=== PATIENT | male | born 1990 | race Caucasian/White ===

== ENCOUNTER 2016-06-07 02:34 | Emergency (ER) ==
[2016-06-07 02:49] VITALS: BP 157/99; TEMP 98.8; BMI 28.1
[2016-06-07] MEDS ORDERED: ATIVAN PO STA (03:03)
[2016-06-07] MEDS ORDERED: TORADOL IM STA (03:03)
--- NOTE | 2016-06-07 03:05 | ED.PDOC ---
General ED Provider: Dr. AGNES HART Chief Complaint: Chest Pain Stated Complaint: patient complains of difficulty breathing for 1 week worse today. Also compalint of tenderness to the chest when he touches. States he has been going throught alot of stress. Time Seen by Physician: 03:01 Mode of Arrival: Walk-In Information Source: Patient Nursing and Triage Documentation Reviewed and Agree: Yes Review of Systems - Review Of Systems Constitutional: Reports: No symptoms Eyes: Reports: No symptoms Ears, Nose, Mouth, Throat: Reports: No symptoms Respiratory: Reports: No symptoms Cardiac: Reports: No symptoms GI: Reports: No symptoms : Reports: No symptoms Musculoskeletal: Reports: No symptoms Skin: Reports: No symptoms Neurological: Reports: Anxiety, Depressed, Emotional problems Endocrine: Reports: No symptoms Hematologic/Lymphatic: Reports: No symptoms All Other Systems: Reviewed and Negative Past Medical History - Past Medical History Previously Healthy: Yes Endocrine: Reports: None Cardiovascular: Reports: None Respiratory: Reports: Asthma Hematological: Reports: None Gastrointestinal: Reports: None Genitourinary: Reports: None Neuro/Psych: Reports: Anxiety, Depression Musculoskeletal: Reports: None Cancer: Reports: None - Surgical History General Surgical History: Reports: None - Family History Family History: Reports: None - Social History Smoking Status: Current every day smoker, Light tobacco smoker Hx Substance Use: Yes (OCCASIONAL MARIJUANA USE) Alcohol Screening: None - Immunizations Tetanus Shot up to Date: Yes (2008) Physical Exam - Physical Exam Appearance: Ill-appearing Ill-appearing: Moderate Neck: Supple Respiratory: Airway patent, Breath sounds clear, Breath sounds equal, Respirations nonlabored Cardiovascular: RRR, Pulses normal, No rub, No murmur GI/: Soft, Nontender, No masses, Bowel sounds normal, No Organomegaly Musculoskeletal: Normal strength, ROM intact, No edema, No calf tenderness Skin: Warm Neurological: Sensation intact Psychiatric: Anxious, Depressed Critical Care Note - Critical Care Note Total Time (mins): 0 Course - Course Orders, Labs, Meds: Lab Review 06/07/16 06/07/16 03:02 03:05 Urine Color Yellow Urine Clarity Clear Urine pH 6.0 Ur Specific [place] 1.025 Urine Protein Negative Urine Glucose (UA) Negative Urine Ketones Negative Urine Blood Negative Urine Nitrite Negative Urine Bilirubin Negative Urine Urobilinogen 0.2 Ur Leukocyte Esterase Negative Urine Opiates Screen Negative Ur Oxycodone Screen Negative Urine Methadone Screen Negative Ur Propoxyphene Screen Negative Ur Barbiturates Screen Negative U Tricyclic Antidepress Negative Ur Phencyclidine Scrn Negative Ur Amphetamine Screen Negative U Methamphetamines Scrn Negative U Benzodiazepines Scrn Negative Urine Cocaine Screen Negative U Cannabinoids Screen Positive Orders Category Date Time Status DRUG SCREEN, URINE, RAPID Stat LAB 06/07/16 03:02 Completed URINALYSIS C & S IF INDICATED Stat LAB 06/07/16 03:05 Completed Ketorolac Tromethamine [Toradol] MEDS 06/07/16 03:03 Discontinued 60 mg IM ONCE STA Lorazepam [Ativan] MEDS 06/07/16 03:03 Discontinued 0.5 mg PO ONCE STA Medications Discontinued Medications Generic Name Dose Route Start Last Admin Trade Name Freq PRN Reason Stop Dose Admin Ketorolac Tromethamine 60 mg 06/07/16 03:03 06/07/16 03:12 Toradol IM 06/07/16 03:04 60 mg ONCE STA Administration Lorazepam 0.5 mg 06/07/16 03:03 06/07/16 03:13 Ativan PO 06/07/16 03:04 0.5 mg ONCE STA Administration Vital Signs: Temp Pulse Resp BP Pulse Ox 06/07/16 02:38 98.8 F 100 H 28 H 157/99 H 100 Departure - Departure Time of Disposition: 03:59 Disposition: HOME SELF-CARE Discharge Problem: Anxiety attack Instructions: Anxiety (ED), Chest Wall Pain (ED) Condition: Good Pt referred to PMD for follow-up: Yes Additional Instructions: Take Ibuprofen as needed for chest wll pain Take anxiety medications as needed for anxiety. Prescriptions: Amoxicillin [Amoxil] 500 mg PO TID #30 capsule Ibuprofen [Motrin] 600 mg PO Q6H PRN #30 tablet PRN Reason: Analgesia Lorazepam [Ativan] 0.5 mg PO TID #14 tablet Allergies/Adverse Reactions: Allergies codeine Adverse Reaction (Verified 06/07/16 02:49) SWELLING, BREAK OUT, RASH Home Medications: Ambulatory Orders Ibuprofen [Motrin] 600 mg PO Q6H PRN #30 tablet 02/06/16 Amoxicillin [Amoxil] 500 mg PO TID #30 capsule 06/07/16 Ibuprofen [Motrin] 600 mg PO Q6H PRN #30 tablet 06/07/16 Lorazepam [Ativan] 0.5 mg PO TID #14 tablet 06/07/16
[2016-06-07 03:10] LABS: ADD URINE MICROSCOPIC NO; BILIRUBIN,URINE Negative (NEGATIVE); KETONES,URINE Negative (NEGATIVE); LEUKOCYTE ESTERASE ,URINE Negative (NEGATIVE); NITRITE,URINE Negative (NEGATIVE); PROTEIN,URINE Negative (NEGATIVE); URINE, BLOOD Negative (NEGATIVE)
[2016-06-07 03:26] LABS: COCAIN SCREEN,URINE NEGATIVE (NEGATIVE)
== END 2016-06-07 04:21 | disposition home or self-care (01) ==
LOC: ED 02:34
DX: F41.0 Panic disorder [episodic paroxysmal anxiety] (principal); F17.210 Nicotine dependence, cigarettes, uncomplicated
CPT/HCPCS: 80306; 81001; 96372; 99282

== ENCOUNTER 2016-06-11 09:01 | Emergency (ER) ==
[2016-06-11 09:02] VITALS: BMI 28.1
[2016-06-11 09:07] VITALS: BP 137/87; TEMP 98.2
--- NOTE | 2016-06-11 09:20 | ED.PDOC ---
General ED Provider: Dr. MENDEL FERNANDO Chief Complaint: Chest Pain Stated Complaint: Chest pain off and on 2 weeks. Worse today. Seen in ER Thursday night. Time Seen by Physician: 09:15 Mode of Arrival: Walk-In Information Source: Patient, Family Exam Limitations: No limitations Nursing and Triage Documentation Reviewed and Agree: Yes Review of Systems - Review Of Systems Constitutional: Reports: No symptoms Cardiac: Reports: Chest pain GI: Reports: No symptoms : Reports: No symptoms Musculoskeletal: Reports: No symptoms Skin: Reports: No symptoms Neurological: Reports: Anxiety (Relates personal problems to RN and admist to MD many stresses in his life; ativan not helping) All Other Systems: Reviewed and Negative Past Medical History - Past Medical History Previously Healthy: Yes Endocrine: Reports: None Cardiovascular: Reports: None Respiratory: Reports: Asthma Hematological: Reports: None Gastrointestinal: Reports: None Genitourinary: Reports: None Neuro/Psych: Reports: Anxiety, Depression Musculoskeletal: Reports: None Cancer: Reports: None - Surgical History General Surgical History: Reports: None - Family History Family History: Reports: None - Social History Smoking Status: Current every day smoker, Light tobacco smoker Hx Substance Use: Yes (OCCASIONAL MARIJUANA USE) Alcohol Screening: None - Immunizations Tetanus Shot up to Date: Yes Physical Exam - Physical Exam Appearance: Well-appearing Pain Distress: Moderate (Indicates L chest; pectoral region - "burning from inside") Respiratory: Airway patent, Breath sounds clear, Breath sounds equal, Respirations nonlabored Cardiovascular: RRR, Pulses normal, No rub, No murmur GI/: Soft, Nontender, No masses Musculoskeletal: Normal strength, ROM intact, No edema Skin: Warm, Dry, Normal color Neurological: Sensation intact, Motor intact, Alert, Oriented Psychiatric: Affect appropriate, Mood appropriate Interpretation - Radiology Interpretation Radiology Interpretation By: Radiologist Radiology Results: Negative Exam Interpreted: CXR - EKG Interpretation Time of EKG #1: 09:30 Rate: Normal Rhythm: Sinus Ectopy: None [place]: NL ST Segment: Normal Interpretation: NSR Re-Evaluation - Re-Evaluation Time of Re-Evaluation: 11:15 Status: Unchanged Vital Signs Stable: Yes Appearance: Other (Very anxious; discussed at length with pt) Lungs: Clear Skin: Warm and Dry Neuro: Alert and Oriented X3 CV: RRR Critical Care Note - Critical Care Note Total Time (mins): 20 Course - Course Hematology/Chemistry: 06/11/16 09:30 06/11/16 09:30 Orders, Labs, Meds: Lab Review 06/11/16 09:30 WBC 8.46 RBC 4.96 Hgb 16.0 Hct 45.0 MCV 90.7 MCH 32.3 H MCHC 35.6 H RDW Coeff of Mell 11.9 Plt Count 199 Immature Gran % (Auto) 0.5 Neut % (Auto) 52.7 Lymph % (Auto) 33.7 [place] % (Auto) 9.1 Eos % (Auto) 3.5 Baso % (Auto) 0.5 Immature Gran # (Auto) 0.0 Neut # 4.5 Lymph # 2.9 [place] # 0.8 Eos # 0.3 Baso # 0.0 D-Dimer < 0.19 L Sodium 142 Potassium 4.3 Chloride 107 Carbon Dioxide 26 Anion Gap 13.3 BUN 8 Creatinine 0.83 Estimated GFR (MDRD) 111.00 BUN/Creatinine Ratio 9.63 Glucose 85 Calcium 9.3 Total Bilirubin 0.28 AST 25 ALT 58 Alkaline Phosphatase 62 Troponin I < 0.0100 Total Protein 7.0 Albumin 3.8 Globulin 3.2 Albumin/Globulin Ratio 1.19 Orders Category Date Time Status EKG-(IP & OP ONLY) Stat CARDIO 06/11/16 09:24 Completed CBC W/ AUTO DIFF Stat LAB 06/11/16 09:30 Completed COMPREHENSIVE METABOLIC PANEL Stat LAB 06/11/16 09:30 Completed D-DIMER Stat LAB 06/11/16 09:30 Completed TROPONIN I Stat LAB 06/11/16 09:30 Completed CHEST, 2 VIEWS PA & LAT Stat RADS 06/11/16 09:21 Completed Vital Signs: Temp Pulse Resp BP Pulse Ox 06/11/16 09:02 98.2 F 89 20 137/87 97 LEANNE Risk Score LEANNE Risk Score: Risk Score Odds of by 30D 0 0.1 (0.1-0.2) 1 0.3 (0.2-0.3) 2 0.4 (0.3-0.5) 3 0.7 (0.6-0.9) 4 1.2 (1.0-1.5) 5 2.2 (1.9-2.6) 6 3.0 (2.5-3.6) 7 4.8 (3.8-6.1) Departure - Departure Time of Disposition: 11:25 Disposition: HOME SELF-CARE Discharge Problem: Chest pain Instructions: Chest Pain (ED) Condition: Good Pt referred to PMD for follow-up: Yes (Call for appointment) Additional Instructions: Follow up with primary care - [facility] is an option. Take Xanax as prescribed. Prescriptions: Alprazolam [Xanax] 1 mg PO 1-2XD #14 tablet Allergies/Adverse Reactions: Allergies codeine Adverse Reaction (Verified 06/11/16 09:10) SWELLING, BREAK OUT, RASH Home Medications: Ambulatory Orders Ibuprofen [Motrin] 600 mg PO Q6H PRN #30 tablet 02/06/16 Amoxicillin [Amoxil] 500 mg PO TID #30 capsule 06/07/16 Ibuprofen [Motrin] 600 mg PO Q6H PRN #30 tablet 06/07/16 Lorazepam [Ativan] 0.5 mg PO TID #14 tablet 06/07/16 Alprazolam [Xanax] 1 mg PO 1-2XD #14 tablet 06/11/16 Disposition Discussed With: Patient, Family (Dad present with patient throughout ER visit)
[2016-06-11 09:42] LABS: BASOPHILS % (AUTO) 0.5 % (0.0-3.0); EOSINOPHILS # (AUTO) 0.3 K/ul (0.0-0.7); EOSINOPHILS % (AUTO) 3.5 % (0.0-7.0); IMMATURE GRANULOCYTE % (AUTO) 0.5 % (0.0-5.0); LYMPHOCYTES # (AUTO) 2.9 K/uL (0.60-3.4); LYMPHOCYTES % (AUTO) 33.7 (10.0-50.0); MEAN CORPUSCULAR HEMOGLOBIN 32.3 pg (27.0-31.0); MEAN CORPUSCULAR HGB CONC 35.6 (31.8-35.4); MEAN CORPUSCULAR VOLUME 90.7 fl (80.0-94.0); MONOCYTES # (AUTO) 0.8 K/uL (0.4-2.0); MONOCYTES % (AUTO) 9.1 (0-10); NEUTROPHILS # (AUTO) 4.5 K/ul (2.0-6.9); NEUTROPHILS % (AUTO) 52.7; PLATELET COUNT 199 10^3/uL (140-440); RED BLOOD COUNT 4.96 10^6/ul (4.70-6.10); WHITE BLOOD COUNT 8.46 K/ul (4.2-10.2)
--- NOTE | 2016-06-11 10:03 | DI ---
EXAM: Two views of the chest. History: Chest pain. Comparison: Chest radiograph 02/06/2016 Findings: Heart size is normal. No focal consolidation. No appreciable pleural fluid and no pneum othorax. No acute osseous abnormalities. Impression: No acute cardiopulmonary process.
[2016-06-11 10:09] LABS: ALANINE AMINOTRANSFERASE 58 U/L (12-78); ALBUMIN 3.8 g/dL (3.4-5.0); ALBUMIN/GLOBULIN RATIO 1.19; ALKALINE PHOSPHATASE 62 U/L (50-136); ANION GAP 13.3; ASPARTATE AMINO TRANSFERASE 25 U/L (15-37); BILIRUBIN,TOTAL 0.28 mg/dL (0.00-1.20); BLOOD UREA NITROGEN 8 mg/dL (7-18); BUN/CREATININE RATIO 9.63; CALCIUM 9.3 mg/dL (8.2-10.2); CARBON DIOXIDE 26 mmol/L (21-32); CHLORIDE 107 mmol/L (98-107); CREATININE 0.83 mg/dL (0.60-1.10); GLUCOSE 85 mg/dL (70-100); POTASSIUM 4.3 mmol/L (3.5-5.1); SODIUM 142 mmol/L (136-145)
== END 2016-06-11 11:39 | disposition home or self-care (01) ==
LOC: ED 09:01
DX: R07.9 Chest pain, unspecified (principal); F17.210 Nicotine dependence, cigarettes, uncomplicated
CPT/HCPCS: 36415; 80053; 84484; 85025; 85379; 93005; 93010; 99283

== ENCOUNTER 2016-07-02 09:05 | Emergency (ER) ==
[2016-07-02 09:05] VITALS: BMI 28.1
[2016-07-02 09:13] VITALS: BP 159/95; TEMP 96.1
[2016-07-02] MEDS ORDERED: DUONEB NEB STA (09:19)
--- NOTE | 2016-07-02 09:23 | ED.PDOC ---
General ED Provider: Dr. TRINA PINTO JR Chief Complaint: Chest Pain Stated Complaint: HAS BEEN HAVING PROBLEMS WITH LAFT SIDED CHEST PAIN RADIATING UNDER LEFT BREAST FOR A MONTH AND A HALF. WAS SEEN APROX 2-3 WEEKS AGO AND TOLD IT WAS ANXIETY. STATES IT IS NOW GETTING WORSE AND UNABLE TO SLEEP. STATES IT FEELS LIKE SOMEBODY HAS HIT HI, IN THE CHEST. ALSO GETS SHORT OF BREATH WITH IT. LAST MARIJUANA WAS 2 DAYS AGO PT STATES HAS BEEN COUGHING, LEFT SIDE IS TENDER TO TOUCH AND UNABLE TO LAY ON THAT SIDE stabbing left chest pain[ End ]96.1 94 18 97% 159/95 8/10 patient is unhappy with past diagnosis of anxiety, states about to fall over at work, pain interferes with intercourse; location left upper chest above areola also is grabbingleft chest below areola at ant ax line. asth anx adhd testicle. : 06/11/16 FERNANDO: Chest pain off and on 2 weeks. Worse today. Seen in ER Thursday night: Anxiety (Relates personal problems to RN and admit to MD many stresses in his life; ativan not helping): Asthma: Anxiety, Depression(OCCASIONAL MARIJUANA USE) (Very anxious; discussed at length with pt): Chest Pain (ED). Pt referred to PMD for follow- up: Yes (Call for appointment)Follow up with primary care - [facility] is an option. Take Xanax as prescribed. [Xanax] 1 mg PO #14 tabletcodeine AdverseSWELLING, BREAK OUT, RASH[Motrin]02/06/16 [Amoxil] 06/07/16 [Motrin] 07/21 [Ativan]06/07/16 [Xanax]06/11/16. Disposition Discussed With: Patient, Family (Dad present with patient throughout ER visit). : 06/07/16: Chest Pain; difficulty breathing for 1 week worse today. tenderness to the chest.going throught alot of stress.: Anxiety, Depressed, Emotional problems: Asthma: Depressed Anxiety attack:Anxiety (ED), Chest Wall Pain (ED) Ibuprofen for chest wll pain anxiety medications as needed [id number] mg Motrin 600 mg Ativan 0.5 mg. : 02/06/16 :tightness to left chest 4-5 days, heart is racing. pain from mid left chest to left axilla does not radiate. Denies injury or lifting: Anxious Methylprednisolone 125 mg 02/07/16 Pleuritic chest pain: Thoracic Pain (ED), Anxiety (ED) referred to PMD for follow-up: Yes Follow up with PCP in 3 days. : 03/29/15: Earache:left ear pain, 2 days, today worse: Otitis Media Augmentin 500-125 mg Tab] Dexamethasone 4 mg/ml Inj Toradol 60 mg IM :Otitis Media. : 11/20/14: Dyspnea at rest, Dyspnea on exertion, Orthopnea Prolonged Expiratory Phase:Unable to Speak Full Sentences:Negative:CXR admitted. : : my sinuses are plugged johana am coughing Time Seen by Physician: 09:15 Mode of Arrival: Walk-In Information Source: Patient Exam Limitations: No limitations Nursing and Triage Documentation Reviewed and Agree: No Review of Systems - Review Of Systems Constitutional: Reports: No symptoms Eyes: Reports: No symptoms Ears, Nose, Mouth, Throat: Reports: No symptoms Respiratory: Reports: Short of air Cardiac: Reports: Chest pain GI: Reports: No symptoms : Reports: No symptoms Musculoskeletal: Reports: Muscle pain Skin: Reports: No symptoms Neurological: Reports: Anxiety Endocrine: Reports: No symptoms Hematologic/Lymphatic: Reports: No symptoms All Other Systems: Other Past Medical History - Past Medical History Previously Healthy: Yes Endocrine: Reports: None Cardiovascular: Reports: None Respiratory: Reports: Asthma Hematological: Reports: None Gastrointestinal: Reports: None Genitourinary: Reports: None Neuro/Psych: Reports: Anxiety, Depression Musculoskeletal: Reports: None Cancer: Reports: None - Surgical History General Surgical History: Reports: None - Family History Family History: Reports: None - Social History Smoking Status: Current every day smoker, Light tobacco smoker Hx Substance Use: Yes (OCCASIONAL MARIJUANA USE) Alcohol Screening: None Physical Exam - Physical Exam Appearance: Well-appearing Pain Distress: Moderate Eyes: GINNY, EOMI, Conjunctiva clear ENT: Ears normal, Nose normal, Oropharynx normal Neck: Supple Respiratory: Airway patent, Breath sounds clear, Breath sounds equal, Respirations nonlabored, Crackles (feww intferior) Cardiovascular: RRR, Pulses normal, No rub, No murmur GI/: Soft, Nontender, No masses, Bowel sounds normal, No Organomegaly Musculoskeletal: Normal strength, ROM intact, No edema, No calf tenderness ( left chest wall tenderness as noted) Skin: Warm, Dry, Normal color Neurological: Sensation intact, Motor intact, Reflexes intact, Cranial nerves intact, Alert, Oriented Psychiatric: Affect appropriate, Mood appropriate, Anxious Interpretation - Radiology Interpretation Radiology Interpretation By: Radiologist Radiology Results: Negative Exam Interpreted: CXR - EKG Interpretation Time of EKG #1: 09:30 Rate: Normal Rhythm: Sinus Ectopy: None [place]: NL ST Segment: Normal Critical Care Note - Critical Care Note Total Time (mins): 0 Course - Course Hematology/Chemistry: 07/02/16 09:45 07/02/16 09:45 Orders, Labs, Meds: Lab Review 07/02/16 07/02/16 07/02/16 09:19 09:45 10:40 WBC 8.73 RBC 4.81 Hgb 15.6 Hct 43.1 MCV 89.6 MCH 32.4 H MCHC 36.2 H RDW Coeff of Mell 11.7 Plt Count 205 Immature Gran % (Auto) 0.5 Neut % (Auto) 55.7 Lymph % (Auto) 31.8 [place] % (Auto) 8.1 Eos % (Auto) 3.6 Baso % (Auto) 0.3 Immature Gran # (Auto) 0.0 Neut # 4.9 Lymph # 2.8 [place] # 0.7 Eos # 0.3 Baso # 0.0 Puncture Site Rr O2 Saturation 96.0 ABG pH 7.389 ABG pCO2 37.9 ABG pO2 85.0 ABG HCO3 22.9 ABG Total CO2 24 ABG Base Excess -2 [place] Test + FiO2 % 21.0 Sodium 140 Potassium 3.9 Chloride 108 H Carbon Dioxide 23 Anion Gap 12.9 BUN 12 Creatinine 0.82 Estimated GFR (MDRD) 113.00 BUN/Creatinine Ratio 14.63 Glucose 100 Calcium 9.4 Total Bilirubin 0.19 AST 32 ALT 80 H Alkaline Phosphatase 67 Total Creatine Kinase 45 Troponin I < 0.0100 B-Natriuretic Peptide < 10 Total Protein 7.1 Albumin 4.0 Globulin 3.1 Albumin/Globulin Ratio 1.29 TSH 1.089 Urine Color Yellow Urine Clarity Clear Urine pH 5.5 Ur Specific [place] 1.020 Urine Protein Negative Urine Glucose (UA) Negative Urine Ketones Negative Urine Blood Negative Urine Nitrite Negative Urine Bilirubin Negative Urine Urobilinogen 0.2 Ur Leukocyte Esterase Negative Urine Opiates Screen Negative Ur Oxycodone Screen Negative Urine Methadone Screen Negative Ur Propoxyphene Screen Negative Ur Barbiturates Screen Negative U Tricyclic Antidepress Negative Ur Phencyclidine Scrn Negative Ur Amphetamine Screen Negative U Methamphetamines Scrn Negative U Benzodiazepines Scrn Negative Urine Cocaine Screen Negative U Cannabinoids Screen Positive Orders Category Date Time Status ABG DRAW REQUEST Stat CARDIO 07/02/16 09:20 Completed EKG-(ED ONLY) Stat CARDIO 07/02/16 09:20 Completed NEBULIZER TREATMENT Stat CARDIO 07/02/16 09:20 Completed PEAK FLOW Routine CARDIO 07/02/16 09:33 Completed ED USER EXPERIENCE MANAGER APPLIED .ONCE EMERGENCY 07/02/16 09:20 Active ABG Stat LAB 07/02/16 09:19 Completed B-TYPE NATRIURETIC PEPTIDE Stat LAB 07/02/16 09:45 Completed CBC W/ AUTO DIFF Stat LAB 07/02/16 09:45 Completed COMPREHENSIVE METABOLIC PANEL Stat LAB 07/02/16 09:45 Completed CREATINE KINASE Stat LAB 07/02/16 09:45 Completed DRUG SCREEN, URINE, RAPID Stat LAB 07/02/16 10:40 Completed THYROID STIMULATING HORMONE Stat LAB 07/02/16 09:45 Completed TROPONIN I Stat LAB 07/02/16 09:45 Completed URINALYSIS C & S IF INDICATED Stat LAB 07/02/16 10:40 Completed Ipratropium/Albuterol Neb [Duoneb] MEDS 07/02/16 09:19 Discontinued 1 vial NEB ONCE STA CHEST, 2 VIEWS PA & LAT Stat RADS 07/02/16 09:19 Completed Medications Discontinued Medications Generic Name Dose Route Start Last Admin Trade Name Freq PRN Reason Stop Dose Admin Albuterol/Ipratropium 1 vial 07/02/16 09:19 07/02/16 09:55 Duoneb NEB 07/02/16 09:20 1 vial ONCE STA Administration Vital Signs: Temp Pulse Resp BP Pulse Ox 07/02/16 09:05 96.1 F L 94 H 18 159/95 H 97 Departure - Departure Time of Disposition: 11:11 Disposition: HOME SELF-CARE Discharge Problem: Chest pain Instructions: Thoracic Pain (ED) Condition: Good Pt referred to PMD for follow-up: Yes Additional Instructions: may use pain medicine sparingly for pain opiates are addictive DO NOT take every day recommend over the counter Motrin two to four times a day to relieve pain and swelling daily exercise to get muscles moving follow up with PMD one week Prescriptions: Hydrocodone Bit/Acetaminophen [[place] 5-325] 1 - 2 tab PO Q6HR PRN #12 tablet PRN Reason: pain Ibuprofen [Motrin] 600 mg PO QID PRN #30 tablet PRN Reason: PAIN Allergies/Adverse Reactions: Allergies codeine Adverse Reaction (Verified 07/02/16 09:15) SWELLING, BREAK OUT, RASH Home Medications: Ambulatory Orders Hydrocodone Bit/Acetaminophen [[place] 5-325] 1 - 2 tab PO Q6HR PRN #12 tablet Ibuprofen [Motrin] 600 mg PO QID PRN #30 tablet 07/02/16 Disposition Discussed With: Patient
[2016-07-02 09:45] LABS: ABG BASE EXCESS -2 (-2.0-2.0); ABG HCO3 22.9 (22.0-26.0); ABG PCO2 37.9 mmHg (35-45); ABG PH 7.389 (7.35-7.45); ABG TCO2 24 (22.0-28.0)
[2016-07-02 09:54] LABS: BASOPHILS % (AUTO) 0.3 % (0.0-3.0); EOSINOPHILS # (AUTO) 0.3 K/ul (0.0-0.7); EOSINOPHILS % (AUTO) 3.6 % (0.0-7.0); HEMATOCRIT 43.1 % (42.0-52.0); HEMOGLOBIN 15.6 g/dl (14.0-18.0); IMMATURE GRANULOCYTE % (AUTO) 0.5 % (0.0-5.0); LYMPHOCYTES # (AUTO) 2.8 K/uL (0.60-3.4); LYMPHOCYTES % (AUTO) 31.8 (10.0-50.0); MEAN CORPUSCULAR HEMOGLOBIN 32.4 pg (27.0-31.0); MEAN CORPUSCULAR HGB CONC 36.2 (31.8-35.4); MEAN CORPUSCULAR VOLUME 89.6 fl (80.0-94.0); MONOCYTES # (AUTO) 0.7 K/uL (0.4-2.0); MONOCYTES % (AUTO) 8.1 (0-10); NEUTROPHILS # (AUTO) 4.9 K/ul (2.0-6.9); NEUTROPHILS % (AUTO) 55.7; PLATELET COUNT 205 10^3/uL (140-440); RED BLOOD COUNT 4.81 10^6/ul (4.70-6.10); WHITE BLOOD COUNT 8.73 K/ul (4.2-10.2)
--- NOTE | 2016-07-02 10:35 | DI ---
EXAM: Chest two view, frontal and lateral views. HISTORY: Chest pain. COMPARISON: 06/11/2016. FINDINGS: The heart size is normal. There is no pulmonary vascular congestion. The lungs are irving r. No pleural effusion or pneumothorax is seen. No acute osseous abnormality identified. Since prior study, there has been no significant interval change. IMPRESSION: No acute cardiopulmonary process.
[2016-07-02 10:37] LABS: ALANINE AMINOTRANSFERASE 80 U/L (12-78); ALBUMIN/GLOBULIN RATIO 1.29; ALKALINE PHOSPHATASE 67 U/L (50-136); ANION GAP 12.9; ASPARTATE AMINO TRANSFERASE 32 U/L (15-37); BILIRUBIN,TOTAL 0.19 mg/dL (0.00-1.20); BLOOD UREA NITROGEN 12 mg/dL (7-18); BUN/CREATININE RATIO 14.63; CALCIUM 9.4 mg/dL (8.2-10.2); CARBON DIOXIDE 23 mmol/L (21-32); CHLORIDE 108 mmol/L (98-107); CREATINE KINASE 45 U/L; CREATININE 0.82 mg/dL (0.60-1.10); GLUCOSE 100 mg/dL (70-100); POTASSIUM 3.9 mmol/L (3.5-5.1); SODIUM 140 mmol/L (136-145); TOTAL PROTEIN 7.1 g/dL (6.4-8.2)
[2016-07-02 10:53] LABS: BILIRUBIN,URINE Negative (NEGATIVE); KETONES,URINE Negative (NEGATIVE); LEUKOCYTE ESTERASE ,URINE Negative (NEGATIVE); NITRITE,URINE Negative (NEGATIVE); PH,URINE 5.5 (5-9); PROTEIN,URINE Negative (NEGATIVE); URINE, BLOOD Negative (NEGATIVE)
[2016-07-02 11:03] LABS: COCAIN SCREEN,URINE NEGATIVE (NEGATIVE)
[2016-07-02 11:04] LABS: ADD URINE MICROSCOPIC NO
[2016-07-02] MEDS ORDERED: TORADOL IM STA (11:20)
== END 2016-07-02 11:45 | disposition home or self-care (01) ==
LOC: ED 09:05
DX: R07.9 Chest pain, unspecified (principal); R06.02 Shortness of breath; F17.210 Nicotine dependence, cigarettes, uncomplicated
CPT/HCPCS: 36415; 80053; 80306; 81001; 82550; 82803; 83880; 84443; 84484; 85025; 93005; 93010; 94250; 94640; 96372; 99283

== ENCOUNTER 2016-07-17 16:02 | Emergency (ER) ==
[2016-07-17 16:14] VITALS: BMI 29.7
[2016-07-17 17:00] LABS: BASOPHILS % (AUTO) 0.2 % (0.0-3.0); EOSINOPHILS # (AUTO) 0.2 K/ul (0.0-0.7); HEMATOCRIT 42.5 % (42.0-52.0); HEMOGLOBIN 15.8 g/dl (14.0-18.0); IMMATURE GRANULOCYTE % (AUTO) 0.2 % (0.0-5.0); LYMPHOCYTES # (AUTO) 2.4 K/uL (0.60-3.4); LYMPHOCYTES % (AUTO) 26.6 (10.0-50.0); MEAN CORPUSCULAR HEMOGLOBIN 32.8 pg (27.0-31.0); MEAN CORPUSCULAR HGB CONC 37.2 (31.8-35.4); MEAN CORPUSCULAR VOLUME 88.4 fl (80.0-94.0); MONOCYTES # (AUTO) 0.6 K/uL (0.4-2.0); MONOCYTES % (AUTO) 6.2 (0-10); NEUTROPHILS # (AUTO) 5.8 K/ul (2.0-6.9); NEUTROPHILS % (AUTO) 64.8; PLATELET COUNT 229 10^3/uL (140-440); RED BLOOD COUNT 4.81 10^6/ul (4.70-6.10); WHITE BLOOD COUNT 8.91 K/ul (4.2-10.2)
--- NOTE | 2016-07-17 17:19 | DI ---
EXAM: Chest two view, frontal and lateral views. HISTORY: Cough. Left-sided chest pain. COMPARISON: 07/02/2016. FINDINGS: The heart size is normal. There is no pulmonary vascular congestion. The lungs are irving r. No pleural effusion or pneumothorax is seen. No acute osseous abnormality identified. Since prior study, there has been no significant interval change. IMPRESSION: No acute cardiopulmonary process.
[2016-07-17 17:27] LABS: ALANINE AMINOTRANSFERASE 82 U/L (12-78); ALBUMIN 3.9 g/dL (3.4-5.0); ALBUMIN/GLOBULIN RATIO 1.26; ALKALINE PHOSPHATASE 67 U/L (50-136); ANION GAP 12.4; ASPARTATE AMINO TRANSFERASE 34 U/L (15-37); BILIRUBIN,TOTAL 0.33 mg/dL (0.00-1.20); BLOOD UREA NITROGEN 12 mg/dL (7-18); BUN/CREATININE RATIO 13.95; CALCIUM 9.6 mg/dL (8.2-10.2); CARBON DIOXIDE 23 mmol/L (21-32); CHLORIDE 107 mmol/L (98-107); CREATINE KINASE 51 U/L; CREATININE 0.86 mg/dL (0.60-1.10); GLUCOSE 127 mg/dL (70-100); POTASSIUM 3.4 mmol/L (3.5-5.1); SODIUM 139 mmol/L (136-145)
[2016-07-17 18:13] LABS: COCAIN SCREEN,URINE NEGATIVE (NEGATIVE)
--- NOTE | 2016-07-17 18:33 | ED.PDOC ---
General Stated Complaint: syncope, chest pain Time Seen by Physician: 16:00 (near syncope off, on x 30 days) Information Source: Patient Exam Limitations: No limitations Nursing and Triage Documentation Reviewed and Agree: Yes <SANJANAADALID - Last Filed: 07/17/16 18:30> <NGOC SINGH - Last Filed: 07/17/16 20:37> ED Provider: Dr. NGOC SINGH Chief Complaint: Syncope Neurological Complaint Exam - Syncope/Near Syncope Complaint/Exam Onset/Duration: off/on x 30 days had an event today near syncope Symptoms Are: Still present Episodes Lasting: Minutes Episodes Witnessed: No Loss of Consciousness: No Associated Head Trauma: No Activity at Onset: At rest Aggravating: None Alleviating: Reports: None Associated Signs and Symptoms: Reports: Chest pain (left sided ) Related History: Similar episode Cardiac Risk Factors: Reports: None GI Bleed Risk Factors: Reports: None Dysrhythmia Risk Factors: Reports: None JVD Present: No Carotid Bruit Present: No Glascow Coma Scale (see protocol): 15 Nystagmus Present: No Gag Reflex Present: Yes Meningeal Signs Positive: No Focal Weakness: Present: None Focal Sensory Loss: Present: None Gait: Normal Differential Diagnoses: Dysrhythmia, Hypoglycemia, Metabolic Reaction, Pulmonary Embolism Quality Indicators for Cardiac Chest Pain: EKG in 10min. Quality Indicator For Non-Traumatic Chest Pain/Syncope: EKG Performed <SANJANAADALID - Last Filed: 07/17/16 18:30> Review of Systems - Review Of Systems Constitutional: Reports: No symptoms Eyes: Reports: No symptoms Ears, Nose, Mouth, Throat: Reports: No symptoms Respiratory: Reports: No symptoms Cardiac: Reports: Chest pain, Syncope GI: Reports: No symptoms : Reports: No symptoms Musculoskeletal: Reports: No symptoms Skin: Reports: No symptoms Neurological: Reports: No symptoms Endocrine: Reports: No symptoms Hematologic/Lymphatic: Reports: No symptoms All Other Systems: Reviewed and Negative <SANJANAADALID - Last Filed: 07/17/16 18:30> Past Medical History - Past Medical History Previously Healthy: Yes Endocrine: Reports: None Cardiovascular: Reports: None Respiratory: Reports: Asthma Hematological: Reports: None Gastrointestinal: Reports: None Genitourinary: Reports: None Neuro/Psych: Reports: Anxiety, Depression Musculoskeletal: Reports: None Cancer: Reports: None - Surgical History General Surgical History: Reports: None - Family History Family History: Reports: None - Social History Smoking Status: Current every day smoker, Light tobacco smoker Hx Substance Use: Yes (marijuana) Alcohol Screening: None <ADALID ALALN Last Filed: 07/17/16 18:30> Physical Exam - Physical Exam Appearance: Well-appearing, No pain distress, Well-nourished Eyes: GINNY, EOMI, Conjunctiva clear ENT: Ears normal, Nose normal, Oropharynx normal Respiratory: Airway patent, Breath sounds clear, Breath sounds equal, Respirations nonlabored Cardiovascular: RRR, Pulses normal, No rub, No murmur GI/: Soft, Nontender, No masses, Bowel sounds normal, No Organomegaly Musculoskeletal: Normal strength, ROM intact, No edema, No calf tenderness Skin: Warm, Dry, Normal color Neurological: Sensation intact, Motor intact, Reflexes intact, Cranial nerves intact, Alert, Oriented Psychiatric: Affect appropriate, Mood appropriate <ADALID ALLAN Last Filed: 07/17/16 18:30> Interpretation - Fire Prevention Captain Rate: Normal Rhythm: Sinus Ectopy: None - EKG Interpretation Rate: Normal Rhythm: Sinus Ectopy: None [place]: NL ST Segment: Normal <DAALID ALLAN Last Filed: 07/17/16 18:30> - Radiology Interpretation Radiology Interpretation By: Radiologist Radiology Results: Negative Exam Interpreted: CT Scan <NGOC SINGH - Last Filed: 07/17/16 20:37> Physician Notification - Case Discussed Physician Notified: [email or web address] Time of Notification: 19:00 Physician Notified: 1600 <ADALID ALLAN Last Filed: 07/17/16 18:30> Critical Care Note - Critical Care Note Total Time (mins): 0 <ADALID ALLAN Last Filed: 07/17/16 18:30> Course - Course Hematology/Chemistry: 07/17/16 16:57 07/17/16 16:57 <ADALID ALLAN Last Filed: 07/17/16 18:30> - Course Hematology/Chemistry: 07/17/16 16:57 07/17/16 16:57 <NGOC SINGH - Last Filed: 07/17/16 20:37> - Course Orders, Labs, Meds: Lab Review 07/17/16 07/17/16 16:57 17:55 WBC 8.91 RBC 4.81 Hgb 15.8 Hct 42.5 MCV 88.4 MCH 32.8 H MCHC 37.2 H RDW Coeff of Mell 11.6 Plt Count 229 Immature Gran % (Auto) 0.2 Neut % (Auto) 64.8 Lymph % (Auto) 26.6 Bee % (Auto) 6.2 Eos % (Auto) 2.0 Baso % (Auto) 0.2 Immature Gran # (Auto) 0.0 Neut # 5.8 Lymph # 2.4 Bee # 0.6 Eos # 0.2 Baso # 0.0 D-Dimer (Manual) 199.55 Sodium 139 Potassium 3.4 L Chloride 107 Carbon Dioxide 23 Anion Gap 12.4 BUN 12 Creatinine 0.86 Estimated GFR (MDRD) 107.00 BUN/Creatinine Ratio 13.95 Glucose 127 H Calcium 9.6 Total Bilirubin 0.33 AST 34 ALT 82 H Alkaline Phosphatase 67 Total Creatine Kinase 51 Troponin I < 0.0100 Total Protein 7.0 Albumin 3.9 Globulin 3.1 Albumin/Globulin Ratio 1.26 Urine Opiates Screen Negative Ur Oxycodone Screen Negative Urine Methadone Screen Negative Ur Propoxyphene Screen Negative Ur Barbiturates Screen Negative U Tricyclic Antidepress Negative Ur Phencyclidine Scrn Negative Ur Amphetamine Screen Negative U Methamphetamines Scrn Negative U Benzodiazepines Scrn Negative Urine Cocaine Screen Negative U Cannabinoids Screen Positive Orders Category Date Time Status EKG-(ED ONLY) Stat CARDIO 07/17/16 16:42 Completed NPO REMINDER: IMAGING ONCE CARE 07/17/16 18:36 Active ED IV/MEDIPORT/POWERPORT .ONCE EMERGENCY 07/17/16 18:35 Active BLOOD CULTURE Stat LAB 07/17/16 16:57 Received CBC W/ AUTO DIFF Stat LAB 07/17/16 16:57 Completed COMPREHENSIVE METABOLIC PANEL Stat LAB 07/17/16 16:57 Completed CREATINE KINASE Stat LAB 07/17/16 16:57 Completed D-DIMER Stat LAB 07/17/16 16:57 Completed DRUG SCREEN (RAPID FOR ED) [DRUG SCREEN, URINE, RAPID] LAB 07/17/16 17:55 Completed Stat TROPONIN I Stat LAB 07/17/16 16:57 Completed 0.9 % Sodium Chloride [Saline Flush] MEDS 07/17/16 18:35 Ordered 1 syr IVF PRN PRN CHEST, 2 VIEWS PA & LAT Stat RADS 07/17/16 16:[address] CHEST PE PROTOCOL Stat RADS 07/17/16 18:35 Completed Medications Generic Name Dose Route Start Last Admin Trade Name Nando PRN Reason Stop Dose Admin Sodium Chloride 1 syr 07/17/16 18:35 Saline Flush IVF PRN PRN To flush IV Vital Signs: Temp Pulse Resp BP Pulse Ox 07/17/16 16:03 97.0 F L 115 H 24 151/106 H 97 Departure - Departure Time of Disposition: 18:34 <ADALID ALLAN - Last Filed: 07/17/16 18:30> - Departure Pt referred to PMD for follow-up: Yes Disposition Discussed With: Patient, Family <[email or web address] - Last Filed: 07/17/16 20:37> - Departure Disposition: HOME SELF-CARE Discharge Problem: Syncope Chest pain Qualifiers: Chest pain type: pleurodynia Qualifier Code: (R07.81) Pleurodynia Instructions: Syncope (ED), Near Syncope (ED), Lightheadedness (ED) Condition: Good Additional Instructions: no spicy food can take tyleol or Ibuprofen prn with food. Prescriptions: Prednisone 10 mg PO BIDWM #14 tablet Ranitidine HCl [Zantac] 150 mg PO BIDAC #20 tablet Allergies/Adverse Reactions: Allergies codeine Adverse Reaction (Verified 07/17/16 16:12) SWELLING, BREAK OUT, RASH Home Medications: Ambulatory Orders Ibuprofen [Motrin] 600 mg PO QID PRN #30 tablet 07/02/16 Prednisone 10 mg PO BIDWM #14 tablet 07/17/16 Ranitidine HCl [Zantac] 150 mg PO BIDAC #20 tablet 07/17/16
--- NOTE | 2016-07-17 19:46 | CT ---
EXAM: CT Angiogram Chest. HISTORY: Chest pain. Syncope. COMPARISON: Radiograph earlier the same day. Chest CT 11/16/2014. TECHNIQUE: Multiple axial images of the chest were obtained following intravenous administration of Omnipaque 350, low osmolar. Images were reformatted in the sagittal and coronal plane. 3-D and ma ximum intensity projection reformatted images were created on an independent workstation. Note that initially approximately 40 mL of Omnipaque infiltrated in the right antecubital region. A pproximately 80 mL of Omnipaque-300 was subsequently administered via the left antecubital region fo r the examination. FINDINGS: No lymphadenopathy identified. Heart size is normal. There is no pericardial effusion. No pulmonary arterial filling defects are seen. The lungs are clear without pleural effusion or pne umothorax. No acute abnormality identified in the upper abdomen. Osseous structures are intact. IMPRESSION: No evidence for pulmonary embolus or other acute abnormality of the chest.
[2016-07-17 20:41] VITALS: BP 159/100; TEMP 98
== END 2016-07-17 20:50 | disposition home or self-care (01) ==
LOC: ED 16:02
DX: R55 Syncope and collapse (principal); R07.81 Pleurodynia; F17.210 Nicotine dependence, cigarettes, uncomplicated
CPT/HCPCS: 36415; 80053; 80306; 82550; 84484; 85025; 85379; 87040; 93005; 93010; 99283

== ENCOUNTER 2016-12-20 16:46 | Emergency (ER) ==
[2016-12-20 16:55] VITALS: BP 145/111; TEMP 99.7; BMI 27.3
[2016-12-20] MEDS ORDERED: ATIVAN PO STA (17:21)
[2016-12-20 17:32] LABS: BASOPHILS % (AUTO) 0.2 % (0.0-3.0); EOSINOPHILS # (AUTO) 0.2 K/ul (0.0-0.7); EOSINOPHILS % (AUTO) 1.4 % (0.0-7.0); HEMATOCRIT 44.2 % (42.0-52.0); IMMATURE GRANULOCYTE % (AUTO) 0.4 % (0.0-5.0); LYMPHOCYTES # (AUTO) 3.2 K/uL (0.60-3.4); LYMPHOCYTES % (AUTO) 23.9 (10.0-50.0); MEAN CORPUSCULAR HEMOGLOBIN 32.6 pg (27.0-31.0); MEAN CORPUSCULAR HGB CONC 36.2 (31.8-35.4); MONOCYTES # (AUTO) 0.9 K/uL (0.4-2.0); MONOCYTES % (AUTO) 6.9 (0-10); NEUTROPHILS % (AUTO) 67.2; PLATELET COUNT 238 10^3/uL (140-440); RED BLOOD COUNT 4.91 10^6/ul (4.70-6.10); WHITE BLOOD COUNT 13.41 K/ul (4.2-10.2)
[2016-12-20 17:54] LABS: COCAIN SCREEN,URINE NEGATIVE (NEGATIVE)
[2016-12-20 18:09] LABS: ALBUMIN/GLOBULIN RATIO 1.18; ANION GAP 14.5; BILIRUBIN,TOTAL 0.23 mg/dL (0.00-1.20); BUN/CREATININE RATIO 10.52; CALCIUM 10.1 mg/dL (8.2-10.2); CREATININE 0.76 mg/dL (0.60-1.10); POTASSIUM 3.5 mmol/L (3.5-5.1); TOTAL PROTEIN 7.4 g/dL (6.4-8.2)
--- NOTE | 2016-12-20 18:42 | ED.PDOC ---
General ED Provider: Dr. AGNES HART Chief Complaint: Behavioral Complaint Stated Complaint: Patient is a 26 year old male who comes to the ER with, severe anxiety, heart pounding. Has not been able to sleep for days. Occasionally grandmother gives him ativan. Is frantic about bills since his lost her job. Was on ADD medications but did not follow up. Denies any suicidal or homocidal Ideations. Time Seen by Physician: 18:39 Mode of Arrival: Walk-In Information Source: Patient Exam Limitations: No limitations Primary Care Provider: [facility] Nursing and Triage Documentation Reviewed and Agree: Yes Psychological Complaint Exam - Psychiatric Complaint/Exam Patient Complains Of: Present: Other (Anxiety ) Onset/Duration: 2 days Symptoms Are: Still present Initial Severity: Moderate Current Severity: Severe Character: Present: Depressed, Anxious Aggravating: Reports: Recent stress (bills ), Drug use. Denies: Alcohol use Associated Signs And Symptoms: Reports: Sleep disturbance. Denies: Hostile, Confused, Hallucinating, Paranoid behavior, Appetite change Related History: Reports: Recent stressors. Denies: Suicidal thoughts, Suicidal plan, Suicidal gestures, Homicidal thoughts, Homicidal plan, Homicidal gestures, Prior attempts, Drug ingestion Completed Suicide Risk Factors: None Patient Accompanied By: Family Patient In Custody Of Police: No Social Withdrawal Present: No Social Isolation Present: No Mood: Present: Depressed, Anxious Appearance: Present: Clean Thought Process: Present: Logical Insight: Present: Good Danger To Others: No Differential Diagnoses: Anxiety Review of Systems - Review Of Systems Constitutional: Reports: No symptoms Eyes: Reports: No symptoms Ears, Nose, Mouth, Throat: Reports: No symptoms Respiratory: Reports: No symptoms Cardiac: Reports: Chest pain, Palpitations GI: Reports: No symptoms : Reports: No symptoms Musculoskeletal: Reports: No symptoms Skin: Reports: No symptoms Neurological: Reports: Anxiety, Depressed, Emotional problems Endocrine: Reports: No symptoms Hematologic/Lymphatic: Reports: No symptoms All Other Systems: Reviewed and Negative Past Medical History - Past Medical History Previously Healthy: Yes Endocrine: Reports: None Cardiovascular: Reports: None Respiratory: Reports: Asthma Hematological: Reports: None Gastrointestinal: Reports: None Genitourinary: Reports: None Neuro/Psych: Reports: Anxiety, Depression Musculoskeletal: Reports: None Cancer: Reports: None - Surgical History General Surgical History: Reports: None - Family History Family History: Reports: None - Social History Smoking Status: Current every day smoker, Light tobacco smoker Hx Substance Use: Yes (marijuana) Alcohol Screening: None Physical Exam - Physical Exam Appearance: Ill-appearing Ill-appearing: Mild Eyes: Conjunctiva clear Neck: Supple Respiratory: Airway patent, Breath sounds clear, Breath sounds equal, Respirations nonlabored Cardiovascular: Pulses normal, No rub, No murmur, Tachycardia GI/: Soft, Nontender, No masses, Bowel sounds normal, No Organomegaly Musculoskeletal: Normal strength, ROM intact, No edema, No calf tenderness Skin: Warm, Dry, Normal color Neurological: Sensation intact, Motor intact, Alert, Oriented Psychiatric: Anxious, Depressed Critical Care Note - Critical Care Note Total Time (mins): 0 Course - Course Hematology/Chemistry: 12/20/16 17:25 12/20/16 17:25 Orders, Labs, Meds: Lab Review 12/20/16 12/20/16 12/20/16 17:25 17:25 17:35 WBC 13.41 H RBC 4.91 Hgb 16.0 Hct 44.2 MCV 90.0 MCH 32.6 H MCHC 36.2 H RDW Coeff of Mell 11.9 Plt Count 238 Immature Gran % (Auto) 0.4 Neut % (Auto) 67.2 Lymph % (Auto) 23.9 Gillespie % (Auto) 6.9 Eos % (Auto) 1.4 Baso % (Auto) 0.2 Immature Gran # (Auto) 0.1 Neut # 9.0 H Lymph # 3.2 Gillespie # 0.9 Eos # 0.2 Baso # 0.0 Sodium 140 Potassium 3.5 Chloride 106 Carbon Dioxide 23 Anion Gap 14.5 BUN 8 Creatinine 0.76 Estimated GFR (MDRD) 123.00 BUN/Creatinine Ratio 10.52 Glucose 95 Calcium 10.1 Total Bilirubin 0.23 AST 18 ALT 41 Alkaline Phosphatase 73 Total Protein 7.4 Albumin 4.0 Globulin 3.4 Albumin/Globulin Ratio 1.18 TSH 1.239 Urine Opiates Screen Negative Ur Oxycodone Screen Negative Urine Methadone Screen Negative Ur Propoxyphene Screen Negative Ur Barbiturates Screen Negative U Tricyclic Antidepress Negative Ur Phencyclidine Scrn Negative Ur Amphetamine Screen Negative U Methamphetamines Scrn Negative U Benzodiazepines Scrn Negative Urine Cocaine Screen Negative U Cannabinoids Screen Positive Orders Category Date Time Status CBC W/ AUTO DIFF Stat LAB 12/20/16 17:25 Completed COMPREHENSIVE METABOLIC PANEL Stat LAB 12/20/16 17:25 Completed DRUG SCREEN, URINE, RAPID Stat LAB 12/20/16 17:35 Completed TSH [THYROID STIMULATING HORMONE] Stat LAB 12/20/16 17:25 Completed Lorazepam [Ativan] MEDS 12/20/16 17:21 Discontinued 1 mg PO ONCE STA Medications Discontinued Medications Generic Name Dose Route Start Last Admin Trade Name Freq PRN Reason Stop Dose Admin Lorazepam 1 mg 12/20/16 17:21 12/20/16 17:31 Ativan PO 12/20/16 17:22 1 mg ONCE STA Administration Vital Signs: Temp Pulse Resp BP Pulse Ox 12/20/16 16:47 99.7 F H 105 H 20 145/111 H 97 Departure - Departure Time of Disposition: 18:43 Disposition: HOME SELF-CARE Discharge Problem: Anxiety Instructions: Generalized Anxiety Disorder (ED), Anxiolysis in Adults (ED) Condition: Fair Pt referred to PMD for follow-up: Yes Additional Instructions: Take Medications as prescribed Stop using Marijuana Follow up with PCP and you counsellor to reestablish with Psychiatry Prescriptions: Hydroxyzine HCl [Atarax] 25 mg PO TID PRN #15 tablet PRN Reason: Anxiety Lorazepam [Ativan] 0.5 mg PO BID PRN #10 tablet PRN Reason: Severe anxiety Allergies/Adverse Reactions: Allergies codeine Adverse Reaction (Verified 12/20/16 16:56) SWELLING, BREAK OUT, RASH Home Medications: Ambulatory Orders Hydroxyzine HCl [Atarax] 25 mg PO TID PRN #15 tablet 12/20/16 Lorazepam [Ativan] 0.5 mg PO BID PRN #10 tablet 12/20/16 Disposition Discussed With: Patient
== END 2016-12-20 18:59 | disposition home or self-care (01) ==
LOC: ED 16:46
DX: F41.9 Anxiety disorder, unspecified (principal); F12.980 Cannabis use, unspecified with anxiety disorder; G47.9 Sleep disorder, unspecified; F17.210 Nicotine dependence, cigarettes, uncomplicated
CPT/HCPCS: 36415; 80053; 80306; 84443; 85025; 99283